=== PATIENT | female | born 1960 | race Caucasian/White ===

== ENCOUNTER 2020-07-05 06:57 | Day surgery (SDC) | payer MEDICAID ==
[2020-06-26 16:34] LABS: BASOPHILS % (AUTO) 0.5 % (0-1); EOSINOPHILS # (AUTO) 0.1 X10'3 (0-0.9); EOSINOPHILS % (AUTO) 1.5 % (0-6); LYMPHOCYTES # (AUTO) 2.4 X10'3 (1.1-4.8); LYMPHOCYTES % (AUTO) 30.1 % (21-51); MEAN CORPUSCULAR HEMOGLOBIN 28.9 PG (27.0-31.0); MEAN CORPUSCULAR HGB CONC 33.8 g/dL (33.0-36.5); MEAN CORPUSCULAR VOLUME 85.5 FL (78-98); MEAN PLATELET VOLUME 7.1 FL (7.4-10.4); MONOCYTES # (AUTO) 0.6 X10'3 (0-0.9); NEUTROPHILS # (AUTO) 4.8 X10'3 (1.8-7.7); NEUTROPHILS % (AUTO) 60.9 % (42-75); PRE OP HEMATOCRIT 37.8 % (35.0-45.0); PRE OP HEMOGLOBIN 12.8 g/dL (12.0-16.0); PRE OP PLATELET COUNT 296 X10'3 (140-440); RED BLOOD COUNT 4.42 X10'6 (4.20-5.60); RED CELL DISTRIBUTION WIDTH 13.6 % (11.5-14.5)
[2020-06-26 16:50] LABS: ALBUMIN/GLOBULIN RATIO 1.1 (1.1-1.5); ALKALINE PHOSPHATASE 82 IU/L (46-116); BLOOD UREA NITROGEN 15 MG/DL (7-18); BUN/CREATININE RATIO 21.1 (6.6-38.0); CALCIUM 9.2 MG/DL (8.5-10.1); CHLORIDE 105 MMOL/L (99-107); CREATININE 0.71 MG/DL (0.40-0.90); PRE OP ALT 23 U/L (30-65); PRE OP ANION GAP 12 (8-16); PRE OP AST 18 U/L (10-37); PRE OP BILIRUB, TOTAL 0.4 MG/DL (0.0-1.0); PRE OP GLUCOSE 93 MG/DL (70-104); PRE OP POTASSIUM 3.6 MMOL/L (3.4-5.1); PRE OP SODIUM 142 MMOL/L (135-145); TOTAL CARBON DIOXIDE 25.2 MMOL/L (24-32); TOTAL PROTEIN 7.5 G/DL (6.4-8.2); eGFR 85 ML/MIN
[~2020-07-05] VITALS: Ht 172.7 cm; Wt 68.4 kg
[~2020-07-05 06:57] MED LIST: ALBU90AE2 IH; ASCO-10 PO; ATOR10TA70 PO; CELE-85 PO; CHOL50004 PO; FERR325T29 PO; FLO0.1T PO; FLUT1AER3 INH; GLIP2.5T3 PO; GUAI120015 PO; IPRA3AMP31 NEB; LACT1CAP65 PO; LIDO28.35 TOP; METF-438 PO; MOME13HF INH; POLY119P2 PO; TEMA15CA PO; TIOT4MIS2 INH; ceFAZolin 2gm in dextrose, iso 50 ML IV ONE; famotidine 20mg tablet PO ONE; ringers solution, lacted 1,000 ML IV SCH
[2020-07-05] MEDS ORDERED: morphine 4 MG/ML inj SYRINge IV PRN (07:15)
[2020-07-05] MEDS ORDERED: ondansetron/PF 4mg/2ml inj IV PRN (07:15)
[2020-07-05] MEDS ORDERED: proCHLORperazine 10 MG/2 ml inj IV PRN (07:15)
[2020-07-05] MEDS ORDERED: ringers solution, lacted 1,000 ML IV SCH (07:15)
[2020-07-05] MEDS ORDERED: meperidine/PF 25mg/ml syringe IV PRN ×3 (07:15)
[2020-07-05] MEDS ORDERED: morphine 2 MG/ML inj. syringe IV PRN (07:15)
[2020-07-05] MEDS ORDERED: BUPIVAcaine/PF 2.5mg/ml (0.25%) 10ml vial ONE (09:54)
[2020-07-05] MEDS ORDERED: LIDOcaine 0.5% (5mg/ml) 50ml vial ONE (10:11)
[2020-07-05] MEDS ORDERED: fentaNYL/PF 50MCG/1 ML 2ML syringe ONE (10:11)
[2020-07-05] MEDS ORDERED: midazolam 1 mg/ML 2ml injection ONE (10:11)
[2020-07-05] MEDS ORDERED: BUPIVAcaine/PF 2.5mg/ml (0.25%) 10ml vial IJ ONE (10:42)
[2020-07-05] MEDS ORDERED: propofol inj 20 ML IV ONE (10:48)
[2020-07-05 10:51] VITALS: BP 136/82
--- NOTE | 2020-07-05 10:51 | NUR ---
Received from OR via , accompanied by Anesthesiologist DR CEE and report given by Anesthesiolgist. AWAKENS TO VOICE. VITALS STABLE. DRESSING DI. MEENA PAIN.
[2020-07-05 11:01] VITALS: BP 140/78
[2020-07-05 11:11] VITALS: BP 138/72
[2020-07-05 11:21] VITALS: BP 136/77
[2020-07-05 11:27] VITALS: BP 131/73
[2020-07-05 11:31] VITALS: BP 131/73
--- NOTE | 2020-07-05 11:31 | NUR ---
AWAKE AND ORIENTED. VITALS STABLE. DRESSING DI. MEENA PAIN. HOME WITH A FRIEND AT THIS TIME.
== END 2020-07-05 11:31 | disposition home or self-care (01) ==
LOC: PAS 06:57
PROVIDERS: ATTEND Orthopaedic Surgery Hand Surgery
DX: G56.02 Carpal tunnel syndrome, left upper limb (principal); M65.312 Trigger thumb, left thumb; J44.9 Chronic obstructive pulmonary disease, unspecified; E78.00 Pure hypercholesterolemia, unspecified; M19.90 Unspecified osteoarthritis, unspecified site; E11.43 Type 2 diabetes mellitus with diabetic autonomic (poly)neuropathy; K31.84 Gastroparesis; I95.9 Hypotension, unspecified; Z90.49 Acquired absence of other specified parts of digestive tract; Z98.890 Other specified postprocedural states; Z79.899 Other long term (current) drug therapy; Z87.891 Personal history of nicotine dependence; Z20.822 Contact with and (suspected) exposure to COVID-19
CPT/HCPCS: 26055; 29848; 36415; 80053; 82948; 85025; 87635; 93005; J2001; J2250; J2704; J3010; J3490; A4215; J7120

== ENCOUNTER 2020-08-02 05:31 | Day surgery (SDC) | payer MEDICAID ==
[2020-07-26 14:30] LABS: BASOPHILS % (AUTO) 0.7 % (0-1); EOSINOPHILS # (AUTO) 0.1 X10'3 (0-0.9); EOSINOPHILS % (AUTO) 1.7 % (0-6); LYMPHOCYTES # (AUTO) 2.2 X10'3 (1.1-4.8); LYMPHOCYTES % (AUTO) 33.2 % (21-51); MEAN CORPUSCULAR HEMOGLOBIN 29.2 PG (27.0-31.0); MEAN CORPUSCULAR HGB CONC 34.4 g/dL (33.0-36.5); MEAN PLATELET VOLUME 6.9 FL (7.4-10.4); MONOCYTES # (AUTO) 0.5 X10'3 (0-0.9); NEUTROPHILS # (AUTO) 3.8 X10'3 (1.8-7.7); NEUTROPHILS % (AUTO) 57.4 % (42-75); PRE OP HEMATOCRIT 36.2 % (35.0-45.0); PRE OP HEMOGLOBIN 12.4 g/dL (12.0-16.0); PRE OP PLATELET COUNT 274 X10'3 (140-440); RED BLOOD COUNT 4.26 X10'6 (4.20-5.60); RED CELL DISTRIBUTION WIDTH 13.7 % (11.5-14.5)
[2020-07-26 14:39] LABS: ALBUMIN 3.9 G/DL (3.4-5.0); ALBUMIN/GLOBULIN RATIO 1.2 (1.1-1.5); ALKALINE PHOSPHATASE 79 IU/L (46-116); BLOOD UREA NITROGEN 14 MG/DL (7-18); BUN/CREATININE RATIO 19.7 (6.6-38.0); CHLORIDE 106 MMOL/L (99-107); CREATININE 0.71 MG/DL (0.40-0.90); PRE OP ALT 28 U/L (30-65); PRE OP ANION GAP 10 (8-16); PRE OP AST 21 U/L (10-37); PRE OP BILIRUB, TOTAL 0.4 MG/DL (0.0-1.0); PRE OP GLUCOSE 135 MG/DL (70-104); PRE OP POTASSIUM 3.8 MMOL/L (3.4-5.1); PRE OP SODIUM 142 MMOL/L (135-145); TOTAL CARBON DIOXIDE 26.4 MMOL/L (24-32); TOTAL PROTEIN 7.2 G/DL (6.4-8.2); eGFR 85 ML/MIN
[2020-07-26 14:45] LABS: CALCIUM 8.8 MG/DL (8.5-10.1)
[~2020-08-02] VITALS: Ht 172.7 cm; Wt 69.0 kg
[~2020-08-02 05:31] MED LIST changes: +albuterol 2.5 MG/3 ML nebule NEB ONE; -ceFAZolin 2gm in dextrose, iso 50 ML IV ONE; +cefazolin/dext.iso 2gm/100ml 100 ML IV ONE
[2020-08-02 05:40] VITALS: BP 121/73
[2020-08-02] MEDS ORDERED: BUPIVAcaine/PF 2.5mg/ml (0.25%) 10ml vial ONE (06:42)
[2020-08-02] MEDS ORDERED: morphine 2 MG/ML inj. syringe IV PRN (07:10)
[2020-08-02] MEDS ORDERED: hydrALAZINE 20mg/ml inj. IV PRN (07:10)
[2020-08-02] MEDS ORDERED: fentaNYL/PF 50MCG/1 ML 2ML syringe IV PRN ×2 (07:10)
[2020-08-02] MEDS ORDERED: morphine 4 MG/ML inj SYRINge IV PRN (07:10)
[2020-08-02] MEDS ORDERED: ringers solution, lacted 1,000 ML IV SCH (07:10)
[2020-08-02] MEDS ORDERED: labetalol 20mg/4ml (5mg/ml) syringe IV PRN (07:10)
[2020-08-02] MEDS ORDERED: ondansetron/PF 4mg/2ml inj IV PRN (07:10)
[2020-08-02] MEDS ORDERED: LIDOcaine 0.5% (5mg/ml) 50ml vial ONE (07:11)
[2020-08-02] MEDS ORDERED: MIDAZolam 1 MG/ML 5ML VIAL ONE (07:13)
[2020-08-02] MEDS ORDERED: fentaNYL/PF 50MCG/1 ML 2ML syringe ONE (07:13)
[2020-08-02 07:42] VITALS: BP 115/70
--- NOTE | 2020-08-02 07:42 | NUR ---
Received from OR via [facility] , accompanied by Anesthesiologist KEVAN and report given by Anesthesiolgist. PATIENT WITH 20G PIV IN LEFT UE AND BIAS DRESSING TO RIGHT WRIST THAT IS CDI. + CAP REFILL AND MOVEMENT OF FINGERS ON RIGHT SIDE. DENIES PAIN AT THIS TIME Addendum: 08/02/20 at 0747 by Mario West RN, RN Amended: Links added.
[2020-08-02 07:52] VITALS: BP 132/75
--- NOTE | 2020-08-02 08:02 | NUR ---
ALL DISCHARGE CRITERIA HAS BEEN MET. VSS, PAIN AT A TOLERABLE LEVEL, VOIDING AND ABLE TO SAFELY AMBULATE AND TRANSFER SELF. IV TAKEN OUT WITHOUT ANY COMPLICATIONS. ALL DISCHARGE INSTRUCTIONS COVERED WITH PATIENT AND ALL QUESTIONS ANSWERED. PATIENT TAKEN OUT VIA WHEELCHAIR TO PERSONAL VEHICLE WHERE FAMILY/FRIEND DROVE PATIENT HOME. Addendum: 08/02/20 at 0816 by Mario West RN, RN Amended: Links added.
== END 2020-08-02 08:02 | disposition home or self-care (01) ==
LOC: PAS 05:31 → EDUNIT# 07:30 → PAS 08:02
PROVIDERS: ATTEND Orthopaedic Surgery Hand Surgery
DX: G56.01 Carpal tunnel syndrome, right upper limb (principal); M65.311 Trigger thumb, right thumb; J44.9 Chronic obstructive pulmonary disease, unspecified; E11.9 Type 2 diabetes mellitus without complications; E78.00 Pure hypercholesterolemia, unspecified; Z20.822 Contact with and (suspected) exposure to COVID-19; Z90.49 Acquired absence of other specified parts of digestive tract; Z98.890 Other specified postprocedural states; Z87.891 Personal history of nicotine dependence; Z79.84 Long term (current) use of oral hypoglycemic drugs; Z79.899 Other long term (current) drug therapy
CPT/HCPCS: 26055; 29848; 36415; 80053; 82948; 85025; J2001; J2250; J3010; J3490; U0003; A4215; J7120